=== PATIENT | female | born 1955 | race Caucasian/White ===

== ENCOUNTER → 2016-03-28 | Outpatient (CLI) | payer OTHER ==
[~2016-03-28] MED LIST: CALCIUM 600 PLU1 TAB PO; CALCIUM200 MG PO; ELESTRIN0.06% TP; FISH OIL1 POW; IRON1 POW; MULTIPLE VITAMI1 CAP PO; MULTIVITAMIN1 CTB PO; OMEGA-3 1000 MG1 CAP PO; OSTEO-BI-FLEX 21 TAB PO
== END ==
LOC: MC.RAD 15:23
DX: Z12.31 Encounter for screening mammogram for malignant neoplasm of breast (principal)

== ENCOUNTER 2016-06-20 17:57 | Emergency (ER) | payer OTHER ==
[~2016-06-20] VITALS: Ht 167.6 cm; Wt 69.1 kg
[~2016-06-20 17:57] MED LIST changes: -CALCIUM 600 PLU1 TAB PO; -MULTIPLE VITAMI1 CAP PO; -OMEGA-3 1000 MG1 CAP PO
[2016-06-20 18:00] VITALS: BP 154/81; PULSE 71; TEMP 97.9
[2016-06-20] MEDS ORDERED: OMEGA-3 1000 MG1 CAP PO (18:06)
[2016-06-20] MEDS ORDERED: MULTIPLE VITAMI1 CAP PO (18:07)
[2016-06-20] MEDS ORDERED: CALCIUM 600 PLU1 TAB PO (18:34)
== END 2016-06-20 20:14 | disposition home or self-care (01) ==
LOC: COL.ER 17:57
DX: S09.90XA Unspecified injury of head, initial encounter (principal); V43.52XA Car driver injured in collision with other type car in traffic accident, initial encounter; Y92.410 Unspecified street and highway as the place of occurrence of the external cause; R40.2412 Glasgow coma scale score 13-15, at arrival to emergency department

== ENCOUNTER 2016-12-13 17:19 | Emergency (ER) | payer OTHER ==
[~2016-12-13] VITALS: Ht 167.6 cm; Wt 66.8 kg
[~2016-12-13 17:19] MED LIST changes: +CALCIUM 600 PLU1 TAB PO; +MULTIPLE VITAMI1 CAP PO; +OMEGA-3 1000 MG1 CAP PO
[2016-12-13 17:22] VITALS: TEMP 97.5
[2016-12-13 18:29] LABS: ADJUSTED CALCIUM 9.3 mg/dL (8.4-10.2); BILIRUBIN,TOTAL 0.4 mg/dL (0.0-1.0); CALCIUM 9.3 mg/dL (8.4-10.2); CREATININE, serum 0.76 mg/dL (0.52-1.25); TOTAL PROTEIN 6.7 gm/dL (6.4-8.2)
[2016-12-13 18:30] LABS: BASO % 0.6 % (0.0-2.0); EOS # 0.1 (0.0-0.7); EOS % 1.1 % (0-4.0); GRAN # 3.6 (1.4-6.5); GRAN % 67.6 % (42.2-75.2); LYMPH # 1.3 (1.2-3.4); LYMPH % 24.3 % (20.0-51.0); MEAN CELL VOLUME 89 fl (80.0-100.0); MEAN CORPUSCULAR HGB CONC 33 g/dl (33.0-37.0); MEAN PLATELET VOLUME 9.9 fl (7.4-10.4); MONO # 0.3 (0.1-0.6); PLATELET COUNT 247 K/mm3 (130-400); RED BLOOD COUNT 3.86 M/mm3 (4.10-5.30); REDCELL DISTRIBUTION WIDTH-CV 13.2 % (11.5-14.5); WHITE BLOOD COUNT 5.3 K/mm3 (4.8-10.8)
[2016-12-13 18:32] LABS: HEMATOCRIT 34.4 % (37.0-47.0); HEMOGLOBIN 11.2 g/dl (12.5-16.0); MEAN CORPUSCULAR HEMOGLOBIN 29 pg (27.0-31.0)
[2016-12-13 18:33] LABS: POTASSIUM 2.9 mmol/L (3.4-5.0)
[2016-12-13 19:33] LABS: PH 5 (5-8); SQUAMOUS EPITHELIAL None Seen /hpf; URINE APPEARANCE Clear; URINE BACTERIA None Seen /hpf; URINE BILIRUBIN Negative (NEGATIVE); URINE BLOOD Negative (NEGATIVE); URINE COLOR Yellow; URINE GLUCOSE Negative (NEGATIVE); URINE KETONE Negative (NEGATIVE); URINE RBC 0-2 /hpf; URINE UROBILINOGEN Negative (NEGATIVE); URINE WBC 0-2 /hpf
[2016-12-13 20:11] VITALS: BP 109/62; PULSE 75
== END 2016-12-13 20:19 | disposition home or self-care (01) ==
LOC: COL.ER 17:19
PROVIDERS: Family Medicine
DX: E87.6 Hypokalemia (principal); R55 Syncope and collapse
CPT/HCPCS: J2550; J7030

== ENCOUNTER → 2016-12-19 | Outpatient (CLI) | payer OTHER | LOC: COL.CARD 14:12 | DX: R55 Syncope and collapse (principal) ==

== ENCOUNTER → 2017-04-09 | Outpatient (CLI) | payer BC | LOC: MC.RAD 10:12 | DX: Z12.31 Encounter for screening mammogram for malignant neoplasm of breast (principal); Z98.890 Other specified postprocedural states ==

== ENCOUNTER → 2018-04-25 | Outpatient (CLI) | payer BC | LOC: MC.RAD 16:31 | DX: Z12.31 Encounter for screening mammogram for malignant neoplasm of breast (principal); Z98.890 Other specified postprocedural states ==

== ENCOUNTER → 2019-05-13 | Outpatient (CLI) | payer BC | LOC: MC.RAD 16:10 | DX: Z12.31 Encounter for screening mammogram for malignant neoplasm of breast (principal) ==

== ENCOUNTER → 2020-05-17 | Outpatient (CLI) | payer MEDICARE, OTHER | LOC: MC.RAD 13:27 | DX: Z12.31 Encounter for screening mammogram for malignant neoplasm of breast (principal) ==

== ENCOUNTER → 2021-06-07 | Outpatient (CLI) | payer MEDICARE, OTHER | LOC: MC.RAD 09:22 | DX: Z12.31 Encounter for screening mammogram for malignant neoplasm of breast (principal) ==

== ENCOUNTER → 2022-07-12 | Outpatient (CLI) | payer MEDICARE, OTHER | LOC: COL.RAD 07-11 12:00 | DX: E04.1 Nontoxic single thyroid nodule (principal) ==

== ENCOUNTER → 2023-10-08 | Outpatient (CLI) | payer MEDICARE, OTHER | LOC: MC.RAD 12:55 | DX: Z12.31 Encounter for screening mammogram for malignant neoplasm of breast (principal) ==